=== PATIENT | male | born 2000 | race African-American/Black ===

== ENCOUNTER 2018-09-25 10:45 | Emergency (ER) | payer SELFPAY ==
[~2018-09-25] VITALS: Ht 190.5 cm; Wt 117.9 kg
[2018-09-25] MEDS ORDERED: FLUORESCEIN SODIUM 1 MG STRIP ONE (11:05)
[2018-09-25] MEDS: FLUORESCEIN SODIUM 1 MG STRIP OP ONE (11:13)
[2018-09-25] MEDS ORDERED: SULFACETAMIDE SOD 10% OPHT DR 15 ML BOTTLE ONE (11:16)
[2018-09-25] MEDS: SULFACETAMIDE SOD 10% OPHT DR 15 ML BOTTLE OP ONE (11:21)
--- NOTE | 2018-09-25 11:23 | NUR ---
Patient discharged to home in stable conditon. Written and verbal after care instructions given. Patient verbalizes understanding of instructions.pt walks in steady gait.
== END 2018-09-25 11:28 | disposition home or self-care (01) ==
LOC: ER 10:45
DX: S05.02XA Injury of conjunctiva and corneal abrasion without foreign body, left eye, initial encounter (principal); X58.XXXA Exposure to other specified factors, initial encounter; Y93.89 Activity, other specified; Y92.89 Other specified places as the place of occurrence of the external cause; Y99.8 Other external cause status
CPT/HCPCS: A4663